=== PATIENT | female | born 1985 | race Caucasian/White ===

== ENCOUNTER 2019-05-29 19:06 | Emergency (ER) | payer BC ==
[~2019-05-29] VITALS: Ht 167.6 cm; Wt 61.4 kg
[~2019-05-29 19:06] MED LIST: PRENATAL1 TA1 PO
[2019-05-29 19:24] VITALS: BP 137/79; TEMP 99.3
[2019-05-29 20:24] VITALS: PULSE 94
== END 2019-05-29 20:24 | disposition home or self-care (01) ==
LOC: COL.ER 19:06
DX: S93.401A Sprain of unspecified ligament of right ankle, initial encounter (principal); X50.1XXA Overexertion from prolonged static or awkward postures, initial encounter

== ENCOUNTER 2022-04-27 12:30 | Emergency (ER) | payer BC ==
[~2022-04-27] VITALS: Ht 167.6 cm; Wt 59.1 kg
[2022-04-27 12:57] VITALS: BP 118/78
[2022-04-27 13:30] VITALS: PULSE 73; TEMP 98
[2022-04-27] MEDS ORDERED: DOXYCYCLINE 10100 MG PO (13:59)
[2022-04-27] MEDS ORDERED: PREDNISONE20 MG PO (13:59)
== END 2022-04-27 13:35 | disposition home or self-care (01) ==
LOC: COL.ER 12:30
DX: L25.5 Unspecified contact dermatitis due to plants, except food (principal); L03.114 Cellulitis of left upper limb

== ENCOUNTER 2022-07-02 21:20 | Emergency (ER) | payer BC ==
[~2022-07-02] VITALS: Ht 167.6 cm; Wt 61.4 kg
[~2022-07-02 21:20] MED LIST changes: +DOXYCYCLINE 10100 MG PO; +PREDNISONE20 MG PO
[2022-07-02 21:28] VITALS: TEMP 98.6
[2022-07-02 22:01] LABS: COLLECTION METHOD CLEAN CATCH
[2022-07-02 22:04] LABS: BASO % 0.2 % (0.0-2.0); EOS # 0.3 K/mm3 (0.0-0.7); EOS % 2.1 % (0.0-4.0); GRAN # 9.5 K/mm3 (1.4-6.5); GRAN % 72.3 % (42.2-75.2); HEMATOCRIT 37.8 % (37.0-47.0); HEMOGLOBIN 12.6 g/dl (12.5-16.0); LYMPH # 2.5 K/mm3 (1.2-3.4); LYMPH % 18.9 % (20.0-51.0); MEAN CELL VOLUME 87 fl (80.0-100.0); MEAN CORPUSCULAR HEMOGLOBIN 29 pg (27-31); MEAN CORPUSCULAR HGB CONC 33 g/dl (33.0-37.0); MEAN PLATELET VOLUME 9.7 fl (7.4-10.4); MONO # 0.8 K/mm3 (0.1-0.6); MONO % 6.2 % (1.7-9.3); PLATELET COUNT 334 K/mm3 (130-400); RED BLOOD COUNT 4.35 M/mm3 (4.10-5.30); REDCELL DISTRIBUTION WIDTH-CV 11.9 % (11.5-14.5)
[2022-07-02 22:22] LABS: SQUAMOUS EPITHELIAL None Seen /hpf (0-10); URINE BACTERIA Rare /hpf (NONE SEEN); URINE RBC 0-2 /hpf (0-2)
[2022-07-02 22:23] LABS: ALBUMIN 3.8 gm/dL (3.5-5.0); BILIRUBIN,TOTAL 0.5 mg/dL (0.2-1.2); CALCIUM 9.1 mg/dL (8.4-10.2); CREATININE, serum 0.71 mg/dL (0.57-1.11); POTASSIUM 3.4 mmol/L (3.5-4.5)
[2022-07-02 22:24] LABS: URINE COLOR OTHER (YELLOW)
[2022-07-02 22:25] LABS: PH 5.5 (5.0-8.5); URINE APPEARANCE Hazy (CLEAR/HAZY); URINE BLOOD 1+ (NEGATIVE); URINE GLUCOSE TRACE (NEGATIVE); URINE KETONE Negative (NEGATIVE); URINE NITRATE Positive (NEGATIVE); URINE PROTEIN(semi-quant) 1+ (NEGATIVE); URINE UROBILINOGEN 0.2 E.U/dL (0.2-1.0)
[2022-07-03] MEDS ORDERED: OMNICEF 300MG300 MG PO (00:08)
[2022-07-03 00:23] VITALS: BP 100/57; PULSE 58
== END 2022-07-03 00:23 | disposition home or self-care (01) ==
LOC: COL.ER 21:20
PROVIDERS: Nurse Practitioner Primary Care
DX: N39.0 Urinary tract infection, site not specified (principal)
CPT/HCPCS: J0696; J1885; J7030; Q9967